=== PATIENT | male | born 1950 | race Caucasian/White ===

== ENCOUNTER → 2017-09-29 12:26 | Outpatient (CLI) | payer MEDICARE, SELFPAY ==
--- NOTE | 2017-09-29 | DI.US.S_ITS ---
PROCEDURE: US SCROTUM INDICATIONS: LUMP IN LEFT SCROTUM TECHNIQUE: Real-time scanning was performed of the scrotum and testicles, with image documentation. Color and pulse Doppler interrogation was performed of both testicles. COMPARISON: None. FINDINGS: Right: Testicle is normal in size at 5.8 x 2.7 x 3.7 cm, and homogenous in echotexture. Epididymis is normal in overall size and morphology. 2 subcentimeter epididymal cyst present. No hydrocele or varicoceles. Overlying scrotal skin is normal in thickness. Left: Testicle is normal in size at 5.2 x 2.8 x 3.5 cm, and homogeneous in echotexture. Epididymis is normal in overall size and morphology. 2 epididymal cysts present largest measuring 1.4 cm. No hydrocele or varicoceles. Overlying scrotal skin is normal in thickness. Doppler: Color and pulse Doppler demonstrate normal and symmetric arterial flow in both testicles. IMPRESSION: Bilateral epididymal cysts otherwise normal appearance of the testicles. Dictated by: Eliot CONLEY Interpreted: Rivera Romo MD on 09/29/2017 at 13:58 Approved by: Rivera Romo M.D. on 09/29/2017 at 21:40
== END ==
PROVIDERS: PCP Internal Medicine; Visit Provider Internal Medicine
DX: N50.3 Cyst of epididymis (principal)
CPT/HCPCS: 76870

== ENCOUNTER → 2017-10-20 06:54 | Outpatient (CLI) | payer MEDICARE, SELFPAY ==
[2017-10-20 07:52] LABS: BUN Creatinine Ratio 21.3 (6-22); Blood Urea Nitrogen 17 mg/dL (9-20); Calcium 9.3 mg/dL (8.4-10.2); Carbon Dioxide 30 mmol/L (22-32); Chloride 102 mmol/L (98-107); Cholesterol 148 mg/dL (140-199); Estimated Glomerular Filt Rate > 60.0 mL/min (>60); Glucose 97 mg/dL (80-110); HDL Cholesterol 40 mg/dL (40-60); HEMOLYSIS < 15 (0-50); LDL Cholesterol Calculated 89 mg/dL (<100); Potassium 4.1 mmol/L (3.4-5.1); Sodium 143 mmol/L (137-145); Triglycerides 94 mg/dL (35-150)
[2017-10-20 08:21] LABS: Prostate Specific Antigen Scrn 1.58 ng/mL (0.1-4.0)
== END ==
PROVIDERS: PCP Internal Medicine; Visit Provider Internal Medicine
DX: Z00.00 Encounter for general adult medical examination without abnormal findings (principal)
CPT/HCPCS: 36415; 80048; 80061; G0103

== ENCOUNTER 2018-06-21 18:33 | Emergency (ER) | payer MEDICARE, OTHER, SELFPAY ==
[2018-06-21] VITALS (10 sets, daily range): BP systolic 136–179; BP diastolic 71–95; PULSE 82–98; RESP 10–20; TEMP 36.8; O2SAT 97–99; BMI 22.0
--- NOTE | 2018-06-21 18:45 | DI.RAD.S_ITS ---
PROCEDURE: XR CHEST 1V INDICATIONS: chest pain TECHNIQUE: One view of the chest was acquired. COMPARISON: [facility], , CHEST 2 VIEW, 01/16/2014, 9:20. FINDINGS: Surgical changes and devices: None. Lungs and pleura: A small nodular density in the right lower midlung zone may be the nipple shadow. Lungs are clear. No pleural effusions or pneumothorax. Mediastinum: Mediastinal contours appear normal. Heart size is normal. Bones and chest wall: No suspicious bony lesions. Overlying soft tissues appear unremarkable. IMPRESSION: No acute cardiopulmonary disease. A small nodular density in the right lower midlung zone may be the nipple shadow. A chest x-ray with nipple markers is suggested on followup exam. Dictated by: Sarah Ohara M.D. on 06/21/2018 at 19:44 Approved by: Sarah Ohara M.D. on 06/21/2018 at 19:47
[2018-06-21 19:28] LABS: Add Manual Diff / Slide Review NO; Basophils Absolute Auto 0 /uL (0-100); Basophils Percent Auto 0.5 % (0-2); Eosinophils Absolute Auto 200 /uL (0-450); Eosinophils Percent Auto 2.5 % (2-4); Lymphocytes Absolute Auto 1900 /uL (1100-4500); Lymphocytes Percent Auto 19.6 % (25-40); Mean Corpuscular HGB Conc 33.4 % (30-36); Mean Corpuscular Hemoglobin 31.3 PG (26-34); Mean Corpuscular Volume 93.6 fL (80-100); Monocytes Absolute Auto 800 /uL (0-900); Monocytes Percent Auto 8.8 % (3-14); Neutrophils Absolute Auto 6600 /uL (1500-7000); Neutrophils Percent Auto 68.6 % (50-75); Platelet Count 181 X10^3/uL (150-400); Red Blood Cell Count 4.49 X10^6/uL (4.5-5.9); Red Cell Distribution Width 12.9 % (11.6-14.8); White Blood Cell Count 9.6 X10^3/uL (4.5-11.0)
[2018-06-21 19:34] LABS: Prothrombin Time 11.3 SECONDS (10.1-12.7)
--- NOTE | 2018-06-21 19:34 | ED.CHESTPAIN ---
HPI - Chest Pain General Chief Complaint: Chest Pain Stated Complaint: SOB CHEST PAIN Time Seen by Provider: 06/21/18 19:24 Source: patient Mode of arrival: ambulatory Limitations: no limitations History of Present Illness HPI narrative: Patient is 67-year-old male who presents with chest discomfort. He noticed it today while walking at [place]. He feels like it hurts every time he takes a deep breath. He does not feel like he is short of breath. He is able to go home felt a little bit better however it started again when he was walking again. He does notice it at rest and with exertion but only while breathing. It is nonradiating. He denies any nausea or diaphoresis. Never had anything like this in the past. He denies any fever or chills no body aches. MD complaint: chest pain Onset (ago): hour(s) Duration: intermittent Onset: during rest and during exertion Pain location: substernal Severity: moderate Quality: tightness Relieving factors: nothing Exacerbating factors: nothing Review of Systems Review of Systems ROS Unobtainable: All systems reviewed & are unremarkable except as noted in HPI and below Constitutional Denies chills, Denies fever(s), Denies lethargy and Denies weakness Cardiovascular Reports chest pain, Denies dyspnea and Denies dyspnea on exertion Respiratory Denies chest congestion, Reports pain on inspiration, Reports pain with cough, Denies dyspnea, Denies dyspnea on exertion and Denies wheezing Genitourinary Denies hematuria, Denies flank pain, Denies urinary incontinence and Denies urinary urgency Musculoskeletal Denies back pain, Denies muscle weakness, Denies numbness and Denies tingling Integumentary/Breasts Denies pruritus, Denies erythema, Denies rash and Denies wounds Neurologic Denies numbness, Denies tingling and Denies weakness Allergic/Immunologic Denies wheezing [facility] Medical History Patient denies significant medical history (Acute) Social History Smoking Status: Former smoker Social History Smoking Status: Former smoker Exam Initial Vital Signs Initial Vital Signs: Vital Signs Temperature 98.3 F 06/21/18 18:50 Pulse Rate 89 06/21/18 18:50 Respiratory Rate 20 06/21/18 18:50 Blood Pressure 159/95 H 06/21/18 18:50 Pulse Oximetry 99 06/21/18 18:50 GENERAL: Well-appearing middle-aged male no acute distress HEENT: Head atraumatic,EOMI, pupils reactive, CARDIOVASCULAR: Regular rate and rhythm without murmurs, rubs or gallops. RESPIRATORY: Breath sounds equal bilaterally, no wheezes rales or rhonchi. ABDOMEN: Soft, nontender. Normoactive bowel sounds all 4 quadrants. No guarding or rebound. EXTREMITIES: Normal range of motion, no clubbing or edema. Neurovascularly intact NEUROLOGICAL: Alert and oriented x4.Normal gait and speech. Cranial nerves II through XII grossly intact. SKIN: Warm, dry, no laceration, no petechiae, no rashes or lesions. Scores HEART Score Heart Score history: Moderately Suspicious Heart Score EKG: Non-Specific repolarization disturbance Heart Score Age: 45-64 years old Heart Score risk factors: No known risk factors Heart Score troponin: < or = to normal limit Heart Score Total: 3 Course Orders Ordered: ED Orders 06/21/18 20:46 Troponin I Stat 06/21/18 21:40 Influenza A and B by PCR Rapid Stat Discontinued Medications Albuterol/Ipratropium (Duoneb) 3 ml INH NOW ONE Stop: 06/21/18 19:34 Last Admin: 06/21/18 20:04 Dose: 3 ml Ketorolac Tromethamine (Toradol) 30 mg IV NOW ONE Stop: 06/21/18 21:06 Last Admin: 06/21/18 21:32 Dose: 30 mg Morphine Sulfate (Morphine) 2 mg IV NOW ONE Stop: 06/21/18 21:44 Last Admin: 06/21/18 22:21 Dose: Not Given Nitroglycerin (Nitrostat) 0.4 mg SL NOW ONE Stop: 06/21/18 20:36 Last Admin: 06/21/18 20:39 Dose: 0.4 mg Pantoprazole Sodium (Protonix) 40 mg IV NOW ONE Stop: 06/21/18 21:06 Last Admin: 06/21/18 21:32 Dose: 40 mg Vital Signs - 8 hr 06/21/18 21:35 06/21/18 23:07 06/21/18 23:08 Pulse Rate 89 89 98 H Respiratory Rate 10 L 13 15 Blood Pressure Blood Pressure [Left Arm] 136/71 160/89 H Pulse Oximetry 97 98 97 06/21/18 23:17 Pulse Rate 88 Respiratory Rate 18 Blood Pressure 160/89 H Blood Pressure [Left Arm] Pulse Oximetry 98 MDM - Chest Pain Lab Data Attestation: I reviewed the patient's lab results. Result diagrams: 06/21/18 19:04 06/21/18 19:04 Lab Results 06/21/18 06/21/18 06/21/18 Range/Units 19:04 19:04 19:04 WBC 9.6 (4.5-11.0) X10^3/uL RBC 4.49 L (4.5-5.9) X10^6/uL Hgb 14.0 (13.5-17.5) g/dL Hct 42.0 (41-53) % MCV 93.6 (80-100) fL MCH 31.3 (26-34) PG MCHC 33.4 (30-36) % RDW 12.9 (11.6-14.8) % Plt Count 181 (150-400) X10^3/uL Neut % (Auto) 68.6 (50-75) % Lymph % (Auto) 19.6 L (25-40) % Mcpherson % (Auto) 8.8 (3-14) % Eos % (Auto) 2.5 (2-4) % Baso % (Auto) 0.5 (0-2) % Neut # (Auto) 6600 (8960-9490) /uL Lymph # (Auto) 1900 (1342-9800) /uL Mcpherson # (Auto) 800 (0-900) /uL Eos # (Auto) 200 (0-450) /uL Baso # (Auto) 0 (0-100) /uL PT 11.3 (10.1-12.7) SECONDS INR 1.0 (0.9-1.3) APTT 29 (26.4-36.2) SECONDS D-Dimer (<230) ng/mL Sodium 136 L (137-145) mmol/L Potassium 3.8 (3.4-5.1) mmol/L Chloride 99 (98-107) mmol/L Carbon Dioxide 28 (22-32) mmol/L BUN 20 (9-20) mg/dL Creatinine 0.80 (0.66-1.25) mg/dL Estimated GFR > 60.0 (>60) mL/min BUN/Creatinine Ratio 25.0 H (6-22) Glucose 139 H (80-110) mg/dL Calcium 9.4 (8.4-10.2) mg/dL Total Bilirubin 0.5 (0.2-1.3) mg/dL AST 23 (17-59) IU/L ALT 32 (21-72) IU/L Alkaline Phosphatase 55 (38-126) U/L Total Creatine Kinase 75 (55-170) U/L CK-MB (CK-2) TNP CK-MB (CK-2) Rel Index TNP Troponin I < 0.012 (0.01-0.034) ng/mL Total Protein 7.3 (6.3-8.2) g/dL Albumin 4.5 (3.5-5.0) g/dL Globulin 2.8 (1.7-4.1) g/dL Albumin/Globulin Ratio 1.6 (1.0-2.8) Lipase 186 (23-300) U/L Influenza A & B (PCR) (Negative) 06/21/18 06/21/18 06/21/18 Range/Units 19:04 20:46 21:40 WBC (4.5-11.0) X10^3/uL RBC (4.5-5.9) X10^6/uL Hgb (13.5-17.5) g/dL Hct (41-53) % MCV (80-100) fL MCH (26-34) PG MCHC (30-36) % RDW (11.6-14.8) % Plt Count (150-400) X10^3/uL Neut % (Auto) (50-75) % Lymph % (Auto) (25-40) % Mcpherson % (Auto) (3-14) % Eos % (Auto) (2-4) % Baso % (Auto) (0-2) % Neut # (Auto) (2211-8395) /uL Lymph # (Auto) (8959-8626) /uL Mcpherson # (Auto) (0-900) /uL Eos # (Auto) (0-450) /uL Baso # (Auto) (0-100) /uL PT (10.1-12.7) SECONDS INR (0.9-1.3) APTT (26.4-36.2) SECONDS D-Dimer < 200 (<230) ng/mL Sodium (137-145) mmol/L Potassium (3.4-5.1) mmol/L Chloride (98-107) mmol/L Carbon Dioxide (22-32) mmol/L BUN (9-20) mg/dL Creatinine (0.66-1.25) mg/dL Estimated GFR (>60) mL/min BUN/Creatinine Ratio (6-22) Glucose (80-110) mg/dL Calcium (8.4-10.2) mg/dL Total Bilirubin (0.2-1.3) mg/dL AST (17-59) IU/L ALT (21-72) IU/L Alkaline Phosphatase (38-126) U/L Total Creatine Kinase (55-170) U/L CK-MB (CK-2) CK-MB (CK-2) Rel Index Troponin I < 0.012 (0.01-0.034) ng/mL Total Protein (6.3-8.2) g/dL Albumin (3.5-5.0) g/dL Globulin (1.7-4.1) g/dL Albumin/Globulin Ratio (1.0-2.8) Lipase (23-300) U/L Influenza A & B (PCR) Negative (Negative) Urine Dip Bedside Urine Glucose Negative Bedside Urine Bilirubin - Negative Bedside Urine Ketone - Negative Urine Specific [place] 1.020 Bedside Urine Occult Blood - Negative Bedside Urine pH 5.5 Bedside Urine Protein - Negative Bedside Urine Urobilinogen - Negative Bedside Urine Nitrite - Negative Bedside Urine Leukocytes - Negative Esterase Imaging Data Chest x-ray: Radiologist's impression: PROCEDURE: XR CHEST 1V INDICATIONS: chest pain TECHNIQUE: One view of the chest was acquired. COMPARISON: [facility], CHEST 2 VIEW, 01/16/2014, 9:20. FINDINGS: Surgical changes and devices: None. Lungs and pleura: A small nodular density in the right lower midlung zone may be the nipple shadow. Lungs are clear. No pleural effusions or pneumothorax. Mediastinum: Mediastinal contours appear normal. Heart size is normal. Bones and chest wall: No suspicious bony lesions. Overlying soft tissues appear unremarkable. IMPRESSION: No acute cardiopulmonary disease. A small nodular density in the right lower midlung zone may be the nipple shadow. A chest x-ray with nipple markers is suggested on followup exam. Dictated by: Sarah Ohara M.D. on 06/21/2018 at 19:44 ECG Data Attestation: I personally reviewed and interpreted this ECG as follows: Prior ECG tracings: available for review Interpretation: EKG 1.: Normal sinus rhythm rate 86 T-wave inversion noted in aVL similar to previous EKG no ST changes. NE interval 145 normal sinus rhythm rate 81 persistent T-wave inversion in aVL no ST changes is MDM Narrative Medical decision making narrative: The patient had no relief with pain at from albuterol or nitro. His he did get relief with Toradol and Protonix. It does seem to be pleuritic every time he agrees and was relieved with NSAIDs. symptoms slightly consistent with pleurisy or musculoskeletal. I discussed with patient need for admission. He continued to have stress for most of his time in the emergency department. 2 troponins and EKGs lower negative in remained unchanged however I did stress that he likely needs a stress test encouraged him to stay in the hospital. Patient refused. He understands that he may need a stress test. He would like to follow up with his doctor and have this arranged as outpatient. He understands that if he needs to return to the ED at any time he can in his able to do so. The patient is clinically sober, free from distracting injury, appears to have intact insight, judgment and reason. Does not meet criteria for involuntary hospitalization. Patient has the capacity to make decisions. I have considered several life threatening etiologies for the patients chest pain such as pulmonary embolism, dissection, and this patients presentation is not consistent with such entities and therefore , no further testing was warranted. Discharge Plan Departure Patient Disposition: Home Clinical Impression: Atypical chest pain Discharge Date/Time: 06/21/18 23:18 Interventions: ED Discharge Assessment Last Done: 06/21/18 23:17 Instructions: DI for Atypical Chest Pain Activity Restrictions/Additional Instructions: *You have been diagnosed with atypical chest pain *What to do: it was recommended that he stay in the hospital for a stress test tomorrow morning. A heart attack has not been ruled out 100%. Please talk with her primary care provider to help schedule 1 as an outpatient. *Continue to take medications as directed Aspirin 81 mg daily *Follow up with your primary care provider in 2-3 days *Return to ER if you should have worsening chest pain, shortness of breath, orany new, worsening or concerning symptoms Referrals: Susan Dooley MD [Primary Care Provider] -
[2018-06-21 19:36] LABS: PTT Partial Thromboplastin Tim 29 SECONDS (26.4-36.2)
[2018-06-21 19:41] LABS: Alanine Aminotransferase 32 IU/L (21-72); Albumin 4.5 g/dL (3.5-5.0); Albumin Globulin Ratio 1.6 (1.0-2.8); Alkaline Phosphatase 55 U/L (38-126); Aspartate Aminotransferase 23 IU/L (17-59); Bilirubin Total 0.5 mg/dL (0.2-1.3); Blood Urea Nitrogen 20 mg/dL (9-20); Calcium 9.4 mg/dL (8.4-10.2); Carbon Dioxide 28 mmol/L (22-32); Chloride 99 mmol/L (98-107); Creatine Kinase 75 U/L (55-170); Estimated Glomerular Filt Rate > 60.0 mL/min (>60); Globulin 2.8 g/dL (1.7-4.1); Glucose 139 mg/dL (80-110); HEMOLYSIS < 15 (0-50); Lipase 186 U/L (23-300); Potassium 3.8 mmol/L (3.4-5.1); Sodium 136 mmol/L (137-145); Total Protein 7.3 g/dL (6.3-8.2)
[2018-06-21 19:50] LABS: Troponin I < 0.012 ng/mL (0.01-0.034)
[2018-06-21] MEDS: ALBUTEROL/IPRATROPIUM 3 ML AMPUL INH (20:04)
[2018-06-21] MEDS: NITROGLYCERIN 0.4 MG SL TAB SL (20:39)
[2018-06-21 21:24] LABS: Troponin I < 0.012 ng/mL (0.01-0.034)
[2018-06-21] MEDS: KETOROLAC 60 MG/2 ML VIAL 30 MG IV (21:32)
[2018-06-21] MEDS: PANTOPRAZOLE 40 MG VIAL IV (21:32)
[2018-06-21 22:01] LABS: D Dimer < 200 ng/mL (<230)
[2018-06-21 22:08] LABS: Influenza A and B by PCR Rapid Negative (Negative)
== END 2018-06-21 23:18 | disposition home or self-care (01) ==
PROVIDERS: Emergency Provider Emergency Medicine; PCP Internal Medicine
DX: R07.89 Other chest pain (principal)
CPT/HCPCS: 36415; 71045; 80053; 81003; 82550; 83690; 84484; 85025; 85379; 85610; 85730; 87400; 93005; 94640; 96374; 96375; 99283; 99285; C9113; J1885

== ENCOUNTER 2018-06-26 09:16 | Emergency (ER) | payer MEDICARE, OTHER, SELFPAY ==
[2018-06-26 09:25] VITALS: BP 135/82; PULSE 105; RESP 18; TEMP 36.7; O2SAT 97; BMI 20.9
--- NOTE | 2018-06-26 09:50 | DI.CT.S_ITS ---
PROCEDURE: CT ANGIO CHEST PE PROTOCOL INDICATIONS: persistant chest pain TECHNIQUE: After the administration of intravenous contrast, 2 mm thick sections acquired from the pulmonary apices to the posterior costophrenic angles. 3-dimensional maximum intensity projection (MIP) coronal and sagittal reformats were then acquired through the thorax. For radiation dose reduction, the following was used: automated exposure control, adjustment of mA and/or kV according to patient size. COMPARISON: None. FINDINGS: Image quality: Excellent. Pulmonary arteries: Pulmonary arteries are normal in size, and demonstrate no intraluminal filling defects to suggest central pulmonary embolism. Lungs and pleura: Lungs are clear. No pleural effusions or pneumothorax. Central and peripheral airways are patent. Mediastinum: Heart size is normal. Moderate-sized pericardial fluid collection is noted that measures 1.2 cm in maximum depth. Atherosclerotic calcifications are noted in the aorta, great vessels and the coronary vasculature. No mediastinal or hilar adenopathy. Thoracic aorta is normal in caliber and enhancement. Esophagus is normal in caliber, without hiatal hernia. Bones and chest wall: No suspicious bony lesions. Ribs and thoracic spine appear intact throughout. Spine degenerative disease and facet arthropathy noted. Thyroid gland is within normal limits. No axillary or supraclavicular adenopathy. Abdomen: Partially visualized large, at least 13.3 cm in diameter left renal cysts. Hepatic cyst in the left lobe of the liver. Visualized upper abdominal solid organs appear normal in the early arterial phase of enhancement. IMPRESSION: 1. No pulmonary embolus. 2. Moderate-sized pericardial effusion. 3. Atherosclerosis including dense atherosclerotic calcifications in the left coronary vasculature. Dictated by: Marta Regalado MD, PhD on 06/26/2018 at 10:36 Approved by: Marta Regalado MD, PhD on 06/26/2018 at 10:39
--- NOTE | 2018-06-26 09:52 | ED.CHESTPAIN ---
HPI - Chest Pain General Chief Complaint: Chest Pain Stated Complaint: PAINFUL TO GET A DEEP BREATH Time Seen by Provider: 06/26/18 09:44 Source: patient Mode of arrival: ambulatory Limitations: no limitations History of Present Illness HPI narrative: Patient is a 67-year-old male returning for chest pain. He was seen evaluated here 06/22/2018 for pleuritic type pain however his pain was hard to control admission was discussed however patient wanted to leave. He said his pain had been resolved after Toradol and Protonix a remained gone for the next 3-4 days. However last night he started noticing it again. It is in the center of his chest hurts every time he takes a deep breath he does have some radiation up to his right shoulder. He has no his abdominal pain no nausea or vomiting. He is able to sleep if he takes short shallow breaths. He has appointment with his PCP in 2 days. MD complaint: chest pain Onset (ago): day(s) Duration: intermittent Pain location: substernal Severity: mild Quality: sharp Pain radiation: RUE Exacerbating factors: inspiration Related Data Previous Rx's Medication Instructions Recorded prednisone 50 mg PO DAILY #5 tab 06/26/18 Allergies Allergy/AdvReac Type Severity Reaction Status Date / Time No Known Drug Allergies Allergy Verified 06/26/18 09:25 Review of Systems Review of Systems GENERAL: Denies chills, fatigue, malaise, fever, sweats, travel HEENT: Denies sinus pain, ear pain, sore throat, difficulty swallowing, neck pain RESPIRATORY: See HPI pain with inspiration denies cough or fever CARDIOVASCULAR: see HPI GASTROINTESTINAL: Denies nausea, vomiting, abdominal pain, diarrhea, constipation, melena. : Denies dysuria, frequency, incontinence, hematuria, urinary retention, flank pain. MUSCULOSKELETAL: Denies weakness, joint pain, or bony pain SKIN: No rash, no erythema, no pruritus NEUROLOGIC: Denies weakness, dizziness, headache, numbness, change in speech, confusion PSYCHIATRIC: No concerning psychosocial issues. 12 point review of systems is negative except for those stated above and HPI [facility] Medical History Patient denies significant medical history (Acute) Social History Smoking Status: Former smoker Social History Smoking Status: Former smoker substance use type: marijuana Exam Initial Vital Signs Initial Vital Signs: Vital Signs Temperature 98.0 F 06/26/18 09:25 Pulse Rate 105 H 06/26/18 09:25 Respiratory Rate 18 06/26/18 09:25 Blood Pressure 135/82 06/26/18 09:25 Pulse Oximetry 97 06/26/18 09:25 GENERAL: alert elderly male no acute distress HEENT: Head atraumatic,EOMI, pupils reactive, face symmetric, CARDIOVASCULAR: Regular rate and rhythm without murmurs, rubs or gallops. pain is nonreproducible with palpation RESPIRATORY: Breath sounds equal bilaterally, no wheezes rales or rhonchi. ABDOMEN: Soft, nontender. Normoactive bowel sounds all 4 quadrants. No guarding or rebound. negative Edwards sign EXTREMITIES: Normal range of motion, no clubbing or edema. Neurovascularly intact NEUROLOGICAL: Alert and oriented x4.Normal gait and speech. Cranial nerves II through XII grossly intact. SKIN: Warm, dry, no laceration, no petechiae, no rashes or lesions. Course Orders Ordered: ED Orders 06/26/18 09:50 CT angio chest PE protocol Stat 06/26/18 10:00 B Type Natriuretic Peptide Stat Complete Blood Count AUTO DIFF Stat Comprehensive Metabolic Panel Stat Lipase Stat Troponin & CK Cardiac Panel Stat Discontinued Medications Albuterol (Ventolin Hfa) 2 puff INH NOW ONE Stop: 06/26/18 11:48 Last Admin: 06/26/18 11:40 Dose: 2 mcg Albuterol/Ipratropium (Duoneb) 3 ml INH NOW ONE Stop: 06/26/18 11:17 Last Admin: 06/26/18 11:25 Dose: 3 ml Ketorolac Tromethamine (Toradol) 30 mg IV NOW ONE Stop: 06/26/18 09:51 Last Admin: 06/26/18 10:01 Dose: 30 mg Pantoprazole Sodium (Protonix) 40 mg IV NOW ONE Stop: 06/26/18 09:51 Last Admin: 06/26/18 10:02 Dose: 40 mg Vital Signs - 8 hr 06/26/18 09:25 06/26/18 09:54 06/26/18 10:00 Temperature 98.0 F Pulse Rate 105 H 96 H 96 H Respiratory Rate 18 20 16 Blood Pressure 135/82 Blood Pressure [Left Arm] 131/86 136/77 Pulse Oximetry 97 98 96 06/26/18 11:20 06/26/18 11:40 06/26/18 12:00 Temperature Pulse Rate 94 H 103 H 103 H Respiratory Rate 16 15 16 Blood Pressure Blood Pressure [Left Arm] 112/70 120/78 Pulse Oximetry 98 99 96 MDM - Chest Pain Lab Data Attestation: I reviewed the patient's lab results. Result diagrams: 06/26/18 10:00 06/26/18 10:00 Lab Results 06/26/18 06/26/18 Range/Units 10:00 10:00 WBC 9.7 (4.5-11.0) X10^3/uL RBC 4.71 (4.5-5.9) X10^6/uL Hgb 14.6 (13.5-17.5) g/dL Hct 43.8 (41-53) % MCV 93.1 (80-100) fL MCH 31.0 (26-34) PG MCHC 33.2 (30-36) % RDW 13.1 (11.6-14.8) % Plt Count 193 (150-400) X10^3/uL Neut % (Auto) 78.1 H (50-75) % Lymph % (Auto) 8.9 L (25-40) % [place] % (Auto) 12.2 (3-14) % Eos % (Auto) 0.3 L (2-4) % Baso % (Auto) 0.5 (0-2) % Neut # (Auto) 7600 H (2396-1018) /uL Lymph # (Auto) 900 L (4373-7048) /uL [place] # (Auto) 1200 H (0-900) /uL Eos # (Auto) 0 (0-450) /uL Baso # (Auto) 0 (0-100) /uL Sodium 138 (137-145) mmol/L Potassium 4.6 (3.4-5.1) mmol/L Chloride 101 (98-107) mmol/L Carbon Dioxide 26 (22-32) mmol/L BUN 24 H (9-20) mg/dL Creatinine 0.90 (0.66-1.25) mg/dL Estimated GFR > 60.0 (>60) mL/min BUN/Creatinine Ratio 26.7 H (6-22) Glucose 103 (80-110) mg/dL Calcium 9.2 (8.4-10.2) mg/dL Total Bilirubin 0.4 (0.2-1.3) mg/dL AST 20 (17-59) IU/L ALT 26 (21-72) IU/L Alkaline Phosphatase 55 (38-126) U/L Total Creatine Kinase 49 L (55-170) U/L CK-MB (CK-2) TNP CK-MB (CK-2) Rel Index TNP Troponin I < 0.012 (0.01-0.034) ng/mL B-Natriuretic Peptide < 100 (<100) Total Protein 7.6 (6.3-8.2) g/dL Albumin 4.6 (3.5-5.0) g/dL Globulin 3.0 (1.7-4.1) g/dL Albumin/Globulin Ratio 1.5 (1.0-2.8) Lipase 140 (23-300) U/L Imaging Data CT scan - chest: Radiologist's impression: PROCEDURE: CT ANGIO CHEST PE PROTOCOL INDICATIONS: persistant chest pain TECHNIQUE: After the administration of intravenous contrast, 2 mm thick sections acquired from the pulmonary apices to the posterior costophrenic angles. 3-dimensional maximum intensity projection (MIP) coronal and sagittal reformats were then acquired through the thorax. For radiation dose reduction, the following was used: automated exposure control, adjustment of mA and/or kV according to patient size. COMPARISON: None. FINDINGS: Image quality: Excellent. Pulmonary arteries: Pulmonary arteries are normal in size, and demonstrate no intraluminal filling defects to suggest central pulmonary embolism. Lungs and pleura: Lungs are clear. No pleural effusions or pneumothorax. Central and peripheral airways are patent. Mediastinum: Heart size is normal. Moderate-sized pericardial fluid collection is noted that measures 1.2 cm in maximum depth. Atherosclerotic calcifications are noted in the aorta, great vessels and the coronary vasculature. No mediastinal or hilar adenopathy. Thoracic aorta is normal in caliber and enhancement. Esophagus is normal in caliber, without hiatal hernia. Bones and chest wall: No suspicious bony lesions. Ribs and thoracic spine appear intact throughout. Spine degenerative disease and facet arthropathy noted. Thyroid gland is within normal limits. No axillary or supraclavicular adenopathy. Abdomen: Partially visualized large, at least 13.3 cm in diameter left renal cysts. Hepatic cyst in the left lobe of the liver. Visualized upper abdominal solid organs appear normal in the early arterial phase of enhancement. IMPRESSION: 1. No pulmonary embolus. 2. Moderate-sized pericardial effusion. 3. Atherosclerosis including dense atherosclerotic calcifications in the left coronary vasculature. Dictated by: Marta Regalado MD, PhD on 06/26/2018 at 10:36 ECG Data Attestation: I personally reviewed and interpreted this ECG as follows: Prior ECG tracings: available for review Interpretation: Normal sinus rhythm rate [address] changes he does have some ST elevation early repolarization similar to previous EKGs NH interval 139. MDM Narrative Medical decision making narrative: the patient did not have much relief after Toradol and Protonix. he was given neb treatment which open him up a lot and helped. He is given albuterol inhaler and a course of prednisone. This time I still recommended he get an outpatient stress test. The patient understands and agrees he has an appointment with PCP in 2 days. Discharge Plan Departure Patient Disposition: Home Clinical Impression: Exacerbation of reactive airway disease Qualifiers: Asthma severity: mild Asthma persistence: intermittent Qualified Code(s): J45.21 - Mild intermittent asthma with (acute) exacerbation Discharge Date/Time: 06/26/18 12:20 Interventions: ED Discharge Assessment Last Done: 06/26/18 12:20 Instructions: DI for Reactive Airway Disease-Adult Activity Restrictions/Additional Instructions: *You have been diagnosed with reactive airway disease *What to do: at this time is still recommended that he receive an outpatient stress test. However this is likely more all lung related and related to smoking. *Continue to take medications as directed Prednisone 50 mg once a day for 5 days albuterol inhaler 1-2 puffs every 4 hr only if needed for chest pain shortness of breath wheezing or coughing some *Follow up with your primary care provider in 2-3 days *Return to ER if you should have increasing shortness of breath, chest pain or any new, worsening or concerning symptoms Prescriptions: New prednisone 50 mg tablet 50 mg PO DAILY Qty: 5 RF: 0 Referrals: Susan Dooley MD [Primary Care Provider] -
[2018-06-26 09:54] VITALS: BP 131/86; PULSE 96; RESP 20; O2SAT 98
[2018-06-26 10:00] VITALS: BP 136/77; PULSE 96; RESP 16; O2SAT 96
[2018-06-26] MEDS: KETOROLAC 60 MG/2 ML VIAL 30 MG IV (10:01)
[2018-06-26] MEDS: PANTOPRAZOLE 40 MG VIAL IV (10:02)
[2018-06-26 10:08] LABS: Add Manual Diff / Slide Review NO; Basophils Absolute Auto 0 /uL (0-100); Basophils Percent Auto 0.5 % (0-2); Eosinophils Absolute Auto 0 /uL (0-450); Eosinophils Percent Auto 0.3 % (2-4); Hematocrit 43.8 % (41-53); Hemoglobin 14.6 g/dL (13.5-17.5); Lymphocytes Absolute Auto 900 /uL (1100-4500); Lymphocytes Percent Auto 8.9 % (25-40); Mean Corpuscular HGB Conc 33.2 % (30-36); Mean Corpuscular Volume 93.1 fL (80-100); Monocytes Absolute Auto 1200 /uL (0-900); Monocytes Percent Auto 12.2 % (3-14); Neutrophils Absolute Auto 7600 /uL (1500-7000); Neutrophils Percent Auto 78.1 % (50-75); Platelet Count 193 X10^3/uL (150-400); Red Blood Cell Count 4.71 X10^6/uL (4.5-5.9); Red Cell Distribution Width 13.1 % (11.6-14.8); White Blood Cell Count 9.7 X10^3/uL (4.5-11.0)
[2018-06-26 10:19] LABS: Alanine Aminotransferase 26 IU/L (21-72); Albumin 4.6 g/dL (3.5-5.0); Albumin Globulin Ratio 1.5 (1.0-2.8); Alkaline Phosphatase 55 U/L (38-126); Aspartate Aminotransferase 20 IU/L (17-59); BUN Creatinine Ratio 26.7 (6-22); Bilirubin Total 0.4 mg/dL (0.2-1.3); Blood Urea Nitrogen 24 mg/dL (9-20); Calcium 9.2 mg/dL (8.4-10.2); Carbon Dioxide 26 mmol/L (22-32); Chloride 101 mmol/L (98-107); Creatine Kinase 49 U/L (55-170); Estimated Glomerular Filt Rate > 60.0 mL/min (>60); Glucose 103 mg/dL (80-110); HEMOLYSIS 16 (0-50); Lipase 140 U/L (23-300); Potassium 4.6 mmol/L (3.4-5.1); Sodium 138 mmol/L (137-145); Total Protein 7.6 g/dL (6.3-8.2)
[2018-06-26 10:31] LABS: Troponin I < 0.012 ng/mL (0.01-0.034)
[2018-06-26 10:34] LABS: B Type Natriuretic Peptide < 100 (<100)
[2018-06-26 11:20] VITALS: PULSE 94; RESP 16; O2SAT 98
[2018-06-26] MEDS: ALBUTEROL/IPRATROPIUM 3 ML AMPUL INH (11:25)
[2018-06-26 11:40] VITALS: BP 112/70; PULSE 103; RESP 15; O2SAT 99
[2018-06-26] MEDS: ALBUTEROL HFA 60 PUFF/8 GM INH INH (11:40)
[2018-06-26 12:00] VITALS: BP 120/78; PULSE 103; RESP 16; O2SAT 96
== END 2018-06-26 12:20 | disposition home or self-care (01) ==
PROVIDERS: Emergency Provider Emergency Medicine; PCP Internal Medicine
DX: J45.21 Mild intermittent asthma with (acute) exacerbation (principal)
CPT/HCPCS: 36415; 36591; 71275; 80053; 82550; 83690; 83880; 84484; 85025; 93005; 93010; 94640; 96374; 96375; 99283; 99285; C9113; J1885; Q9967

== ENCOUNTER → 2018-07-30 12:41 | Outpatient (CLI) | payer MEDICARE, OTHER, SELFPAY ==
--- NOTE | 2018-07-30 | DI.ECHO.S_ITS ---
[facility] +---------+ : : [address] : : : : [id number] : : : : Phone: [phone] Echocardiogram Report + + :Name: DI GAYTAN Study Date: 07/30/2018 Height: 72 in : :[facility] Weight: 150 lb : : Gender: Male BSA: 1.9 m2 : :: 1950 Age: 68 yrs BP: 140/68 mmHg: :Reason For Study: PERICARDITIS : : Performed By: Taryn Turner : :Referring: ELIUD FERRERA : + + Interpretation Summary Normal sinus rhythm. Normal LV size and wall thickness; normal wall motion and LV systolic function. EF is 50-55%. Mild LA enlargement; otherwise normal chamber sizes. Aortic valve leaflets are normal; there is trace aortic regurgitation. No pericardial effusion. No prior study available for comparison. Procedure: A two-dimensional transthoracic echocardiogram with color flow and Doppler was performed. The study quality was technically adequate. There is no prior echocardiogram noted for this patient. The heart rate ranged between 47-73 bpm during the study. Left Ventricle: The left ventricle is normal in size. There is normal left ventricular wall thickness. A false chord is noted (normal variant). The ejection fraction is estimated to be 50-55%. Right Ventricle: The right ventricle is at the upper limits of normal in size. The right ventricular systolic function is normal. Atria: The left atrium is mildly dilated. Right atrial size is normal. There is no Doppler evidence for an interatrial shunt. Mitral Valve: The mitral valve is normal in structure and function. There is trace mitral regurgitation. Aortic Valve: The aortic valve is trileaflet. There is trace aortic regurgitation. Tricuspid Valve: The tricuspid valve is normal in structure and function. There is a trace or physiologic amount of tricuspid regurgitation. The right ventricular systolic pressure is estimated to be at least 22 mmHg based on an estimated right atrial pressure of 8 mm Hg. Pulmonic Valve: The pulmonic valve is normal in structure and function. There is a trace or physiologic amount of pulmonic regurgitation. Great Vessels: The aortic root is mildly dilated. The ascending aorta is normal in size. The aortic arch is normal in size. The pulmonary artery is normal size. The IVC is dilated (diameter is greater than 2.1 cm) yet it collapses greater than 50% with a sniff. This suggests a right atrial pressure of 8 mm Hg. Pericardium/ Pleura There is no pericardial effusion. There is no pleural effusion. MMode/2D Measurements & Calculations LVIDd: 4.9 cm LVOT diam: 2.5 cm LVIDs: 4.0 cm Ao root diam: 4.2 cm FS: 19.1 % asc Aorta Diam: 3.1 cm EPSS: 0.49 cm Ao Arch Diam (distal): 2.8 cm IVSd: 0.94 cm LVPWd: 0.89 cm LV sharp. diameter/BSA (cm/m^2): 2.6 LV sys. diameter/BSA (cm/m^2): 2.1 LA A2 area: 21.6 cm2 RA long axis: 5.1 cm LA A4 area: 20.3 cm2 RA area: 19.0 cm2 LA length (vol): 4.8 cm RA vol: 60.1 ml LA vol: 77.1 ml RA : 31.9 ml/m2 LA vol index: 40.9 ml/m2 IVC diam: 2.5 cm RVD1 (basal): 4.0 cm TAPSE: 2.0 cm Doppler Measurements & Calculations Ao V2 max: 80.7 cm/sec LVOT Max Cruz: 73.7 cm/sec Ao V2 mean: 66.1 cm/sec LV V1 max P.2 mmHg Ao max P.6 mmHg LV V1 VTI: 16.1 cm Ao mean P.8 mmHg JESE(I,D): 4.2 cm2 Ao V2 VTI: 18.3 cm JESE(V,D): 4.4 cm2 sev ratio: 0.88 JESE indexed to BSA (cm^2/m^2): 2.2 MV E max cruz: 54.8 cm/sec TR max cruz: 189.4 cm/sec MV A max cruz: 68.0 cm/sec TR max P.4 mmHg MV E/A: 0.81 Med Peak E' Cruz: 6.0 cm/sec E/E' med: 9.1 Lat Peak E' Cruz: 8.4 cm/sec E/E' lat: 6.5 E/e' average: 7.8 MV dec time: 0.35 sec SV(LVOT): 77.0 ml Electronically signed by: Susanna Ureña M.D. on Reading Physician:07/31/2018 03:40 AM
== END ==
PROVIDERS: PCP Internal Medicine; Visit Provider Internal Medicine
DX: I30.9 Acute pericarditis, unspecified (principal)
CPT/HCPCS: 93306

== ENCOUNTER 2019-04-21 07:41 | Emergency (ER) | payer MEDICARE, OTHER, SELFPAY ==
[2019-04-21 07:48] VITALS: BP 163/88; PULSE 79; RESP 15; TEMP 36.4; O2SAT 96; BMI 21.7
--- NOTE | 2019-04-21 08:16 | ED_ITS ---
HPI - Eye Problem General Chief complaint: Eye Problems Stated complaint: shadow in right eye Time Seen by Provider: 04/21/19 07:51 Source: patient Mode of arrival: Ambulatory Limitations: no limitations History of Present Illness HPI Narrative: Patient comes emergency department complaining of a flashing shadow in his vision in the right eye. Patient states that he began to notice this yesterday evening and thought that his neighbor's laser [employer] light display was shining in his eye. However, patient continued to notice the phenomena and even when he went inside. Patient states that he has had flashing before, and that this happened last week when he was at [facility]. He states that it compromised his vision somewhat, but was relatively short lived and resolved after about 30 minutes. Patient states that this is also happen in other places with fluorescent lights. He states that the symptoms are usually self-limited and do not last more than a matter of minutes. Patient states that he did not have any other focal neurologic symptoms at any point time either on previous episodes or when this started last night. No difficulty speaking or swallowing. No facial droop. No motor weakness anywhere else on his body. No sensory deficits otherwise. No headache, nausea, or vomiting. Patient states he is not with been ill with anything recently. He states he has a history of migraines only when he does not drink coffee, and that this does not happen very often. He has never had any visual phenomena with his migraines. He does not have any history of any eye instrumentation of or surgical procedures. He wears bifocals and states he has required corrective lenses since he was in elementary school. The patient states he usually gets his eye care from screw machine tender at [facility]. No other complaints at this time. He states that the shadow is still in his vision about the same as it was last night. Related Data Previous Rx's Medication Instructions Recorded prednisone 50 mg PO DAILY #5 tab 06/26/18 Allergies Allergy/AdvReac Type Severity Reaction Status Date / Time No Known Drug Allergies Allergy Verified 04/21/19 07:48 Review of Systems Constitutional Constitutional: Denies chills, Denies fatigue, Denies fever(s), Denies frequent falls, Denies lethargy and Denies weakness Eyes Eyes: Denies change in vision, Denies eye discharge, Denies irritation, Denies loss of vision, Reports other visual disturbances and Reports seeing flashes ENT Ears, Nose, Mouth, and Throat: Denies change in voice, Denies dizziness, Denies neck pain, Denies sore throat and Denies throat swelling Cardiovascular Cardiovascular: Denies chest pain, Denies irregular heart rhythm, Denies lightheadedness, Denies palpitations, Denies dyspnea, Denies dyspnea on exertion and Denies orthopnea Respiratory Respiratory: Denies cough, Denies dyspnea, Denies dyspnea on exertion and Denies wheezing Gastrointestinal Gastrointestinal: Denies abdominal pain, Denies change in bowel habits, Denies diarrhea, Denies nausea and Denies vomiting Genitourinary Genitourinary: Denies hematuria, Denies flank pain, Denies urinary incontinence and Denies urinary urgency Musculoskeletal Musculoskeletal: Denies back pain, Denies muscle weakness, Denies neck pain, Denies numbness and Denies tingling Integumentary/Breasts Skin/Breast: Denies pruritus, Denies erythema, Denies rash and Denies wounds Neurologic Neurologic: Denies behavioral changes, Denies confusion, Denies dizziness, Denies frequent falls, Denies loss of vision, Denies numbness, Denies tingling and Denies weakness Psychiatric Psychiatric: Denies anxiety, Denies behavioral changes, Denies confusion, Denies depression, Denies homicidal ideation and Denies suicidal ideation Endocrine Endocrine: Denies fatigue, Denies flushing and Denies palpitations Hematologic/Lymphatic Hematologic/Lymphatic: Denies easy bruising Allergic/Immunologic Allergic/Immunologic: Denies urticaria, Denies throat swelling and Denies whee zing Patient History Medical History Patient denies significant medical history (Acute) Social History Smoking Status: Former smoker substance use type: marijuana Smoking Status: Former smoker alcohol intake frequency: 0-2 drinks per day Substance Use Type: marijuana Exam Initial Vital Signs Initial Vital Signs: Vital Signs Temperature 97.6 F 04/21/19 07:48 Pulse Rate 79 04/21/19 07:48 Respiratory Rate 15 04/21/19 07:48 Blood Pressure 163/88 H 04/21/19 07:48 Pulse Oximetry 96 04/21/19 07:48 Const General: cooperative and well developed Nutritional Appearance: well nourished Orientation: alert, awake, oriented x3 and not confused [facility] Head: normocephalic and atraumatic Ears: external ears normal and TM's normal bilaterally Nose: external nose normal and No nasal discharge Face and sinus: sinuses nontender, face symmetric, no sinus tenderness and No dry mucous membranes Mouth: oral mucosae normal and moist mucous membranes Teeth and gingiva: dentition normal Throat: tonsils normal and uvula midline Eyes General: appearance normal, both eyes and all related structures Eyelids: eyelids normal Conjunctivae: conjunctivae normal Sclera: sclerae normal Pupils: PERRL EOM: EOM intact bilaterally Direct ophthalmoscopy: normal light reflex, no macular abnormalities, photophobia not present, no retinal abnormalities and no vascular abnormalities Other: Limited funduscopic exam performed without dilation. Neck Neck: normal visual inspection, trachea midline, No lymphadenopathy, No midline deformity and No JVD Lymphatic: No lymphedema Chest Chest: normal inspection of the chest Resp Effort & Inspection: normal respiratory effort, able to speak in complete sentences, no respiratory distress and no use of accessory muscles Auscultation: clear to auscultation bilaterally, no rales, no rhonchi and no wheezes Cardio Rate: regular rate Rhythm: regular rhythm Heart Sounds: no click, no gallops, no murmurs and no rubs Pulses: normal peripheral pulses GI Inspection: non-distended Palpation: soft, no hepatosplenomegaly, No guarding, No pulsatile mass and No tender Auscultation: normal bowel sounds Back/Spine/Pelvis Back: No CVA tenderness Cervical Spine: cervical ROM normal and No pain with cervical ROM Thoracic/Lumbar Spine: thoracic and lumbar spine normal to inspection Skin General: no rashes or lesions noted, No jaundice and No petechiae Neuro General: alert, oriented x3, gait normal and no focal motor deficits Speech: speech normal Extrem General: full ROM, no clubbing, cyanosis or edema, no pedal edema and no calf tenderness Psych Appearance: well kempt Mental Status: mental status grossly normal Attitude: cooperative Thought Content: normal and suicidality Judgment: judgment good Course Course Course Narrative: Patient was evaluated in the emergency department with CT scan of the brain, which was found to be unremarkable. I spoke with Dr. Quarles of Ophthalmology, who felt the patient should be evaluated immediately after the emergency department visit in ophthalmology clinic to evaluate for potential retinal detachment. This was discussed with the patient, who agreed to go to the clinic, as directed. Orders Ordered: ED Orders 04/21/19 08:15 CT head/brain wo con Stat Vital Signs Vital signs: Vital Signs - 8 hr 04/21/19 07:48 Temperature 97.6 F Pulse Rate 79 Respiratory Rate 15 Blood Pressure 163/88 H Pulse Oximetry 96 MDM - Eye Problem Medical Records Attestation: I reviewed the patient's medical records. Imaging Data CT scan - head: Radiologist's impression: PROCEDURE: CT HEAD/BRAIN WO CON INDICATIONS: visual changes TECHNIQUE: Noncontrast 4.5 mm thick angled axial sections acquired from the foramen magnum to the vertex, with coronal and sagittal reformats. For radiation dose reduction, the following was used: automated exposure control, adjustment of mA and/or kV according to patient size. COMPARISON: None. FINDINGS: Image quality: Excellent. CSF spaces: Basal cisterns are patent. No extra-axial fluid collections. Ventricles are normal in size and shape. Brain: No midline shift. No intracranial masses or hemorrhage. Whyte-white matter interface is normal. Skull and face: Calvarium and visualized facial bones are intact, without suspicious lesions. Sinuses: Bilateral maxillary and ethmoid sinus mucosal thickening. The mastoids are clear. IMPRESSION: 1. No acute intracranial abnormalities. Dictated by: Sarah Ohara M.D. on 04/21/2019 at 9:20 Approved by: Sarah Ohara M.D. on 04/21/2019 at 9:23 Discharge Plan Departure Patient Disposition: Home Clinical Impression: Visual changes Discharge Date/Time: 04/21/19 09:46 Instructions: DI for Visual Field Disturbances Activity Restrictions/Additional Instructions: Your head CT looks good. Your case has been discussed with Dr. Quarles of Ophthalmology, who would like you to come over to his clinic right away to be ev aluated for a potential retinal detachment. Please go straight there after you are discharged from the emergency department. Prescriptions: No Action prednisone 50 mg tablet 50 mg PO DAILY Qty: 5 RF: 0 Referrals: Rehan Quarles MD [Physician] - (Please go straight to Dr. Quarles's clinic after you are discharged from the emergency department.)
--- NOTE | 2019-04-21 08:36 | DI.CT.S_ITS ---
PROCEDURE: CT HEAD/BRAIN WO CON INDICATIONS: visual changes TECHNIQUE: Noncontrast 4.5 mm thick angled axial sections acquired from the foramen magnum to the vertex, with coronal and sagittal reformats. For radiation dose reduction, the following was used: automated exposure control, adjustment of mA and/or kV according to patient size. COMPARISON: None. FINDINGS: Image quality: Excellent. CSF spaces: Basal cisterns are patent. No extra-axial fluid collections. Ventricles are normal in size and shape. Brain: No midline shift. No intracranial masses or hemorrhage. Whyte-white matter interface is normal. Skull and face: Calvarium and visualized facial bones are intact, without suspicious lesions. Sinuses: Bilateral maxillary and ethmoid sinus mucosal thickening. The mastoids are clear. IMPRESSION: 1. No acute intracranial abnormalities. Dictated by: Sarah Ohara M.D. on 04/21/2019 at 9:20 Approved by: Sarah Ohara M.D. on 04/21/2019 at 9:23
[2019-04-21 09:14] VITALS: BP 130/69; PULSE 80; RESP 14; O2SAT 96
[2019-04-21 09:46] VITALS: BP 138/90; PULSE 73; RESP 16; O2SAT 99
== END 2019-04-21 09:46 | disposition home or self-care (01) ==
PROVIDERS: Emergency Provider Emergency Medicine; PCP Internal Medicine
DX: H53.8 Other visual disturbances (principal)
CPT/HCPCS: 70450; 99281; 99284

== ENCOUNTER → 2021-02-07 10:21 | Outpatient (CLI) | payer MEDICARE, OTHER, SELFPAY ==
--- NOTE | 2021-02-07 10:24 | DI.RAD.S_ITS ---
PROCEDURE: XR SHOULDER RT MIN 2V INDICATIONS: R shoulder pain post injury TECHNIQUE: 3 views of the shoulder were acquired. COMPARISON: None. FINDINGS: Bones: No fractures or dislocations. Moderate acromioclavicular joint and glenohumeral joint osteoarthritic changes are seen. No suspicious bony lesions. Visualized ribs appear intact. Soft tissues: No suspicious soft tissue calcifications. IMPRESSION: Moderate right shoulder joint osteoarthritis. No fracture or dislocation. Dictated by: Sandeep Schwartz M.D. on 02/07/2021 at 10:51 Approved by: Sandeep Schwartz M.D. on 02/07/2021 at 10:52
== END ==
PROVIDERS: PCP Internal Medicine; Referring Provider Nurse Practitioner; Visit Provider Nurse Practitioner
DX: S49.91XA Unspecified injury of right shoulder and upper arm, initial encounter (principal); M19.011 Primary osteoarthritis, right shoulder
CPT/HCPCS: 73030

== ENCOUNTER → 2022-10-07 07:04 | Outpatient (CLI) | payer MEDICARE, OTHER, SELFPAY ==
--- NOTE | 2022-10-07 | DI.US.S_ITS ---
PROCEDURE: US ABD AORTA ANEURYSM SCREEN INDICATIONS: screening for cardiovascular disorders TECHNIQUE: Real time scanning was performed of the aorta and iliac arteries, with image documentation. COMPARISON: None. FINDINGS: Aorta: Proximal aortic diameter measures 2.6 cm. Mid-aorta measures 2.2 cm. Distal aortic diameter is 1.9 cm. Minimal atherosclerotic disease noted. Iliac arteries: Right common iliac artery measures 1.4 cm. Left common iliac artery measures 1.3 cm. IMPRESSION: No sonographic evidence for abdominal aortic aneurysm. Recommend follow-up ultrasound for aortic aneurysm screening in 5 years. Dictated by: Vasiliy Toure M.D. on 10/07/2022 at 8:51 Approved by: Vasiliy Toure M.D. on 10/07/2022 at 8:53
== END ==
PROVIDERS: PCP Internal Medicine; Referring Provider Internal Medicine; Visit Provider Internal Medicine
DX: Z13.6 Encounter for screening for cardiovascular disorders (principal)
CPT/HCPCS: 76706

== ENCOUNTER 2024-12-07 08:09 | Day surgery (SDC) | payer MEDICARE, OTHER, SELFPAY ==
--- NOTE | 2024-12-07 08:31 | P.HP_ITS ---
History of Present Illness History of Present Illness Date Patient Seen: 12/07/24 Chief complaint: Screening Colonoscopy Narrative: Follow-up 10 year colonoscopy [facility] Medical History (Updated 02/07/21 @ 10:15 by LUDWIN Thomas) Patient denies significant medical history Social History substance use type: marijuana Meds Home Medications and Allergies Home Medications ?Medication ?Instructions ?Recorded ?Confirmed ?Type sodium,potassium,mag sulfates 17.5 See Rx Instructions PO .COMPLEX 10/28/24 12/07/24 Rx gram-3.13 gram-1.6 gram oral soln #354 mL (Suprep Bowel Prep Kit) coenzyme Q10 300 mg capsule (Co 300 mg PO DAILY 12/07/24 History Q-10) multivitamin (Daily Multi-Vitamin 1 tab PO DAILY 12/0712/07/24 History tablet) rosuvastatin 5 mg tablet 5 mg PO DAILY 12/07/2412/07 History valsartan 80 mg tablet PO 12/07/24 History Allergies Allergy/AdvReac Type Severity Reaction Status Date / Time No Known Drug Allergies Allergy Verified 12/07/24 08:24 Exam Narrative Exam Narrative: Oropharynx free of lesions Assessment & Plan Assessment & Plan narrative: Follow-up 10 year colonoscopy. Risks, benefits, alternatives have been expla ined. Time-Based Coding :: [TOTAL MINUTES] spent with patient and on the chart (including review of chart, obtaining history, exam, reviewing outside data, placing orders, documenting exam and treatment plan, and counseling patient) on [DATE]. [employer] Document charge(s): No
[2024-12-07 08:32] VITALS: BP 150/80; PULSE 70; RESP 16; TEMP 36.3; O2SAT 98
--- NOTE | 2024-12-07 08:32 | PM.OP.COLON ---
Operative Date/Time/Diagnoses Date of procedure: 12/07/24 Time of procedure: 09:17 Pre-op diagnosis: See indication findings Post-op diagnosis: same Procedure & Clinicians Study performed: Colonoscopy Same procedure(s) as scheduled: Yes Indications: Follow-up 10 year colonoscopy Surgeon: Sienna Horan Anesthesia Type: Other Procedure Notes Procedure in detail: After informed consent was obtained the patient was placed in left lateral decubitus position. The video colonoscope was placed the rectum slowly advanced cecum. Preparation was good. On slow withdrawal mucosa was carefully examined. The scope was removed. The patient tolerated procedure well. Blood loss none Complications none Sedation mac Findings 1. Normal colonoscopy to cecum Patient should have follow-up colonoscopy in 10 years
[2024-12-07] MEDS: LACTATED RINGERS 1,000 ML 42 ML IV (08:44)
[2024-12-07 09:17] VITALS: BP 108/62; PULSE 80; RESP 14; TEMP 36.2; O2SAT 97
[2024-12-07 09:20] VITALS: BP 103/61; PULSE 79; RESP 13; O2SAT 96
[2024-12-07 09:25] VITALS: BP 124/71; PULSE 84; RESP 15; O2SAT 96
[2024-12-07 09:32] VITALS: BP 127/67; PULSE 81; RESP 18; O2SAT 98
== END 2024-12-07 09:52 | disposition home or self-care (01) ==
PROVIDERS: PCP Internal Medicine; Referring Provider Internal Medicine Gastroenterology; Visit Provider Internal Medicine Gastroenterology
PROC: 0DJD8ZZ Inspection of Lower Intestinal Tract, Via Natural or Artificial Opening Endoscopic (ICD-10-PCS; CPT 45378; principal; 2024-12-07 09:15)
DX: Z12.11 Encounter for screening for malignant neoplasm of colon (principal)
CPT/HCPCS: G0121; J2405; J2704